=== PATIENT | female | born 1960 | race Caucasian/White ===

== ENCOUNTER 2023-08-07 19:24 | Emergency (ER) | payer MEDICARE, OTHER ==
[~2023-08-07] VITALS: Ht 154.9 cm; Wt 63.5 kg
[2023-08-07 20:07] LABS: BASOPHILS ABSOLUTE AUTO 0.02 K/mm3 (0.00-0.23); BASOPHILS PERCENT AUTO 0 % (0-2); EOSINOPHILS ABSOLUTE AUTO 0.04 K/mm3 (0.00-0.68); EOSINOPHILS PERCENT AUTO 1 % (0-6); Hematocrit 37.6 % (33.0-51.0); Hemoglobin 12.5 g/dL (11.5-16.0); IMMATURE GRAN PERCENT AUTO 0 % (0-1); LYMPHOCYTES ABSOLUTE AUTO 1.86 K/mm3 (0.84-5.20); LYMPHOCYTES PERCENT AUTO 40 % (21-46); MONOCYTES ABSOLUTE AUTO 0.61 K/mm3 (0.16-1.47); MONOCYTES PERCENT AUTO 13 % (4-13); Mean Corpuscular HGB 28.3 pg (26.0-34.0); Mean Corpuscular HGB Conc 33.2 g/dL (31.5-36.5); Mean Corpuscular Volume 85 fL (80-100); Mean Platelet Volume 8.7 fL (9.1-12.4); NEUTROPHILS ABSOLUTE AUTO 2.18 K/mm3 (1.96-9.15); NEUTROPHILS PERCENT AUTO 46 % (41-73); Platelet Count 205 K/mm3 (150-400); RDW Coefficient Variation 12.5 % (11.7-14.2); RDW Standard Deviation 38.4 fL (35.1-46.3); Red Blood Cell Count 4.42 M/mm3 (3.80-5.20); White Blood Cell Count 4.71 K/mm3 (4.00-11.30)
[2023-08-07 20:27] LABS: Albumin, Blood 3.8 g/dL (3.4-5.0); Albumin/Globulin Ratio 1.1 (0.8-1.8); Bilirubin, Total 0.2 mg/dL (0.1-1.0); Bun/Creatinine Ratio 18.6 (12.0-20.0); Calcium, Blood 9.2 mg/dL (8.5-10.1); Creatinine, Blood 0.75 mg/dL (0.40-1.00); Globulin, Blood 3.5 g/dL (2.2-4.0); Potassium, Blood 3.7 mmol/L (3.5-5.5); Total Protein, Blood 7.3 g/dL (6.4-8.2)
[2023-08-08] MEDS ORDERED: Aspirin 81 MG Chew PO ONE (00:20)
[2023-08-08] MEDS ORDERED: Mag Hydrox/AL Hydrox/Simeth 30 ML UDC PO ONE (03:05)
== END 2023-08-08 04:16 | disposition home or self-care (01) ==
LOC: ER 19:24
PROVIDERS: Nurse Practitioner
DX: N64.4 Mastodynia (principal); R79.1 Abnormal coagulation profile; N63.20 Unspecified lump in the left breast, unspecified quadrant; Z88.8 Allergy status to other drugs, medicaments and biological substances
CPT/HCPCS: 71046; 71260; 80053; 84484; 85025; 85379; 93005; 93010; 99285-25; A9270; Q9967